=== PATIENT | male | born 2000 | race African-American/Black ===

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

== ENCOUNTER 2023-05-16 02:48 | Emergency (ER) | payer OTHER ==
[2023-05-16 03:05] VITALS: BP 120/70; PULSE 64; RESP 18; TEMP 98.3; BMI 24.3
[2023-05-16] MEDS ORDERED: FAMOTIDINE 20 MG/50 ML IVPB 20 MG/50 ML MG IVPB ONE ×2 (03:13→03:28)
[2023-05-16] MEDS ORDERED: ACETAMINOPHEN 1000 MG/100 ML BAG IVPB ONE (03:13)
[2023-05-16] MEDS ORDERED: ONDANSETRON 4 MG/2 ML VIAL IVPUSH ONE (03:13)
[2023-05-16] MEDS ORDERED: SODIUM CHLORIDE 0.9% 500 ML INFUS.BAG IV ONE (03:13)
[2023-05-16] MEDS ORDERED: ACETAMINOPHEN INJECTION 100 ML IVPB ONE (03:28)
[2023-05-16] MEDS ORDERED: ONDANSETRON 4 MG/2 ML VIAL ONE (03:28)
[2023-05-16 04:03] LABS: HEMATOCRIT 40.2 % (35.4-49); HEMOGLOBIN 13.8 GM/dL (11.7-16.9); MCH 29.3 pg (25.7-33.7); MCHC 34.2 g/dl (32.0-35.9); MEAN CELL VOLUME 85.6 fl (80-96); MEAN PLT VOLUME 7.7 fl (7.5-11.1); PLATELET COUNT 245 10^3/uL (134-434); RDW 12.3 % (11.9-15.9); WHITE BLOOD COUNT 8.2 K/mm3 (4.0-10.0)
[2023-05-16 04:28] LABS: POTASSIUM 4.8 mmol/L (3.5-5.1)
[2023-05-16 04:29] LABS: ALBUMIN 4.1 g/dl (3.4-5.0); BLOOD UREA NITROGEN 14.1 mg/dL (7-18); CALCIUM 8.9 mg/dL (8.5-10.1)
[2023-05-16 04:35] LABS: BILIRUBIN,TOTAL 0.4 mg/dL (0.2-1); TOT PROT 8.2 g/dl (6.4-8.2)
== END 2023-05-16 05:08 | disposition home or self-care (01) ==
LOC: JER 02:48
PROC: 3E033GC Introduction of Other Therapeutic Substance into Peripheral Vein, Percutaneous Approach (ICD-10-PCS; principal; 2023-05-16)
PROC: 3E033GC Introduction of Other Therapeutic Substance into Peripheral Vein, Percutaneous Approach (ICD-10-PCS; 2023-05-16)
PROC: 3E033GC Introduction of Other Therapeutic Substance into Peripheral Vein, Percutaneous Approach (ICD-10-PCS; 2023-05-16)
DX: R10.9 Unspecified abdominal pain (principal); R11.2 Nausea with vomiting, unspecified; R19.7 Diarrhea, unspecified
CPT/HCPCS: 36415; 80053; 85027; 99284-25

== ENCOUNTER 2023-09-12 23:49 | Emergency (ER) | payer OTHER ==
[2023-09-12 23:55] VITALS: BP 143/79; PULSE 79; RESP 18; TEMP 98.1; BMI 24.3
[2023-09-13] MEDS ORDERED: AMOXICILLIN 500 MG CAPSULE (FP) PO ONE (00:21)
[2023-09-13] MEDS ORDERED: AMOXICILLIN 500 MG CAPSULE (FP) ONE (00:28)
== END 2023-09-13 00:46 | disposition home or self-care (01) ==
LOC: JER 23:49
DX: H92.02 Otalgia, left ear (principal); H93.8X2 Other specified disorders of left ear; H65.192 Other acute nonsuppurative otitis media, left ear
CPT/HCPCS: 99283-25

== ENCOUNTER 2023-09-25 02:55 | Emergency (ER) | payer OTHER ==
[2023-09-25 03:07] VITALS: BP 137/76; PULSE 92; RESP 20; TEMP 98.5; BMI 25.3
[2023-09-25] MEDS ORDERED: IBUPROFEN 600 MG TABLET (FP) PO ONE ×2 (04:38→04:51)
== END 2023-09-25 06:02 | disposition home or self-care (01) ==
LOC: JER 02:55
DX: M25.571 Pain in right ankle and joints of right foot (principal); M79.671 Pain in right foot
CPT/HCPCS: 73610-TC-RT-FY; 73630-TC-RT-FY; 99283-25

== ENCOUNTER 2023-11-09 08:33 | Emergency (ER) | payer OTHER ==
[2023-11-09 08:40] VITALS: BMI 22.5
[2023-11-09 10:15] LABS: URINE APPEARANCE CLEAR; URINE BILIRUBIN NEGATIVE (NEGATIVE); URINE COLOR DK YELLOW; URINE GLUCOSE (UA) NEGATIVE (NEGATIVE); URINE KETONE TRACE (NEGATIVE); URINE LEUK ESTERASE NEGATIVE (NEGATIVE); URINE NITRITE NEGATIVE (NEGATIVE); URINE PROTEIN NEGATIVE (NEGATIVE)
[2023-11-09 11:07] VITALS: BP 123/88; PULSE 99; RESP 20; TEMP 98.1
== END 2023-11-09 11:08 | disposition home or self-care (01) ==
LOC: JER 08:33
DX: N50.812 Left testicular pain (principal); I86.1 Scrotal varices
CPT/HCPCS: 36415; 76870-TC; 81003; 87086; 87491; 87591; 99284-25

== ENCOUNTER 2024-05-02 23:02 | Emergency (ER) | payer OTHER ==
[2024-05-02 23:17] VITALS: BP 139/88; PULSE 83; RESP 18; TEMP 98.1; BMI 25.9
[2024-05-03 04:23] LABS: HIV INTERPRETATION NEGATIVE (NEGATIVE)
== END 2024-05-03 01:05 | disposition home or self-care (01) ==
LOC: JER 23:02
DX: R42 Dizziness and giddiness (principal)
CPT/HCPCS: 36415; 86803; 87389; 93005; 93010; 99284-25

== ENCOUNTER 2024-07-15 04:36 | Emergency (ER) | payer OTHER ==
[2024-07-15 04:43] VITALS: BP 126/79; PULSE 76; RESP 16; TEMP 98.4; BMI 24.9
== END 2024-07-15 05:50 | disposition home or self-care (01) ==
LOC: JER 04:36
DX: R42 Dizziness and giddiness (principal); R00.2 Palpitations
CPT/HCPCS: 93005; 93010; 99283-25